=== PATIENT | female | born 1945 ===

== ENCOUNTER 2018-01-10 11:36 | Inpatient (IN) | payer OTHER ==
--- NOTE | 2018-01-10 14:02 | RAD ---
HISTORY: Chest pressure COMPARISON: No prior. FINDINGS: LUNGS: There are low lung volumes. There is bibasilar atelectasis. No focal consolidation. PLEURA: No significant pleural effusion identified, no pneumothorax apparent. CARDIOVASCULAR: The heart is normal in size. OSSEOUS STRUCTURES: No significant abnormalities. VISUALIZED UPPER ABDOMEN: Normal. OTHER FINDINGS: None. IMPRESSION: No active pulmonary disease.
[2018-01-10 14:17] LABS: SQUAMOUS EPITHIAL 2 /hpf (0-5); URINE BACTERIA OCC (<OCC); URINE BILIRUBIN NEGATIVE (NEGATIVE); URINE BLOOD NEGATIVE (NEGATIVE); URINE CLARITY SLIGHTY-CLOUDY (Clear); URINE COLOR YELLOW (YELLOW); URINE GLUCOSE (UA) NEG (Normal); URINE LEUKOCYTE ESTERASE LARGE Leu/uL (Negative); URINE PROTEIN NEGATIVE (NEGATIVE); URINE UROBILINOGEN 0.2-1.0 mg/dL (0.2-1.0)
[2018-01-10 14:18] LABS: BASO # 0.1 K/uL (0.0-0.2); BASO % 0.6 % (0.0-2.0); EOS # 0.1 K/uL (0.0-0.7); EOS % 0.6 % (0.0-4.0); HEMOGLOBIN 13.2 g/dL (12.0-16.0); LYMPH # 1.9 K/uL (1.0-4.3); MEAN CELL VOLUME 89.5 fl (81.0-99.0); MEAN CORPUSCULAR HEMOGLOBIN 30.8 pg (27.0-31.0); MEAN CORPUSCULAR HGB CONC 34.4 g/dL (33.0-37.0); MEAN PLATELET VOLUME 8.3 fl (7.2-11.7); MONO # 0.5 K/uL (0.0-0.8); MONO % 6.6 % (0.0-10.0); NEUT # 5.5 K/uL (1.8-7.0); NEUT % 68.2 % (50.0-75.0); NRBC % 0.1 % (0.0-0.0); RBC 4.28 Mil/uL (3.80-5.20); RED CELL DISTRIBUTION WIDTH 12.9 % (11.5-14.5); WHITE BLOOD COUNT 8.1 K/uL (4.8-10.8)
[2018-01-10 14:27] LABS: ALB/GLOB RATIO 1.1 (1.0-2.1); ALBUMIN 3.6 g/dL (3.5-5.0); ALT/SGPT 42 U/L (9-52); AST/SGOT 27 U/L (14-36); BLOOD UREA NITROGEN 20 mg/dl (7-17); CALCIUM 9.5 mg/dL (8.4-10.2); GFR AFRICAN-AMERICAN > 60; GFR NON-AFRICAN AMERICAN > 60
--- NOTE | 2018-01-10 14:38 | ED PDOC ---
HPI: Psych/Substance Abuse Time Seen by Provider: 01/10/18 11:44 Chief Complaint (Nursing): Psychiatric Evaluation Chief Complaint (Provider): Acting bizarre in apartment buiding History Per: Patient, EMS History/Exam Limitations: no limitations Additional Complaint(s): Pt denies complaint and states she does not know why she is in ER. Denies chest pain, fever/chills, N/V/D, dysuria. According to EMS [facility] Police were called because pt was acting "bizarre" in her apartment building. EMS states she was saying people were out to get her in the ambulance. Past Medical History Reviewed: Historical Data, Nursing Documentation, Vital Signs Vital Signs: Last Vital Signs Temp 98.0 F 01/10/18 12:26 Pulse 75 01/10/18 12:26 Resp 19 01/10/18 12:26 BP 128/68 01/10/18 12:26 Pulse Ox 98 01/10/18 12:26 - Medical History Other PMH: Pt states she takes medications at home but not sure for what - Surgical History Surgical History: No Surg Hx - Family History Family History: States: Other - Allergies Allergies/Adverse Reactions: Allergies Allergy/AdvReac Type Severity Reaction Status Date / Time No Known Allergies Allergy Verified 01/10/18 12:29 Review of Systems ROS Statement: Except As Marked, All Systems Reviewed And Found Negative Constitutional: Negative for: Fever, Chills Cardiovascular: Negative for: Chest Pain Respiratory: Negative for: Shortness of Breath Gastrointestinal: Negative for: Nausea, Vomiting, Abdominal Pain, Diarrhea Genitourinary Female: Negative for: Dysuria Physical Exam - Reviewed Nursing Documentation Reviewed: Yes Vital Signs Reviewed: Yes - Physical Exam Appears: Positive for: Well, Non-toxic, No Acute Distress Head Exam: Positive for: ATRAUMATIC, NORMAL INSPECTION, NORMOCEPHALIC Skin: Positive for: Normal Color, Warm, DRY Eye Exam: Positive for: Normal appearance ENT: Positive for: Normal ENT Inspection Neck: Positive for: Normal, Painless ROM Cardiovascular/Chest: Positive for: Regular Rate, Rhythm Respiratory: Positive for: CNT, Normal Breath Sounds Gastrointestinal/Abdominal: Positive for: Normal Exam, Bowel Sounds, Soft. Negative for: Tenderness Back: Positive for: Normal Inspection Extremity: Positive for: Normal ROM Neurologic/Psych: Positive for: Alert. Negative for: Oriented (Oriented only to person) - Laboratory Results Result Diagrams: 01/10/18 14:00 01/10/18 14:00 - ECG O2 Sat by Pulse Oximetry: 98 Pulse Ox Interpretation: Normal Medical Decision Making Medical Decision Makin - Pt attempting to leave ER. lunchroom worker states she has not spoke with psychiatrist yet. Dr. Humphrey aware and with myself and patient. Haldol 2.5 mg ordered IM. Pt endorsed to ERNESTINE Serrano pending [facility] [place] and head [place]. Disposition - Clinical Impression Clinical Impression: Encounter for psychiatric assessment, UTI (urinary tract infection) - Patient ED Disposition Is Patient to be Admitted: Transfer of Care - Disposition Disposition: Transfer of Care Disposition Time: 20:10 Condition: STABLE Forms: [facility] (Armenian)
[2018-01-10 14:39] LABS: BARBITURATES, UR NEGATIVE (NEGATIVE); BENZODIAZEPINES, UR NEGATIVE (NEGATIVE); OPIATES, UR NEGATIVE (NEGATIVE); PHENCYCLIDINE, UR NEGATIVE (NEGATIVE)
[2018-01-10] MEDS ORDERED: Potassium Chloride 20 mEq ER Tab PO STA (15:38)
[2018-01-10] MEDS ORDERED: Potassium Chloride 20 mEq ER Tab PO ONE (16:03)
--- NOTE | 2018-01-10 20:13 | CARD ---
APPROVED REPORT EKG Measurement Heart [id number] <Conclusion> Sinus bradycardia Otherwise normal ECG
--- NOTE | 2018-01-10 22:13 | CT ---
EXAM: CT Head Without Intravenous Contrast CLINICAL HISTORY: 72 years old, female; Signs and symptoms; Altered mental status/memory loss and other: Psych eval; Additional info: AMS TECHNIQUE: Axial computed tomography images of the head/brain without intravenous contrast. All CT scans at this facility use one or more dose reduction techniques, viz.: automated exposure control; ma/kV adjustment per patient size (including targeted exams where dose is matched to indication; i.e. head); or iterative reconstruction technique. Coronal and sagittal reformatted images were created and reviewed. COMPARISON: No relevant prior studies available. FINDINGS: Brain: Moderate atrophy. No intracranial hemorrhage. No mass. Minimal decreased attenuation within periventricular white matter. No definite edema. Ventricles: No hydrocephalus. Bones/joints: No acute fracture. Soft tissues: Unremarkable. Sinuses: No acute sinusitis. Mastoid air cells: No mastoid effusion. Orbits: Unremarkable as visualized. IMPRESSION: 1. Nonspecific white matter changes. Acute infarction may be CT occult within first 24 hours. If a focal deficit persists, consider followup CT or MRI for further evaluation. 2. Incidental/non-acute findings are described above.
--- NOTE | 2018-01-10 22:46 | ED PDOC ---
- Laboratory Results Result Diagrams: 01/10/18 14:00 01/10/18 14:00 - ECG O2 Sat by Pulse Oximetry: 98 - Progress ED Course And Treament: Case endorsed to bond underwriter from Torri SINHA pending [facility] eval EXAM: CT Head Without Intravenous Contrast CLINICAL HISTORY: 72 years old, female; Signs and symptoms; Altered mental status/memory loss and other: Psych eval; Additional info: AMS TECHNIQUE: Axial computed tomography images of the head/brain without intravenous contrast. All CT scans at this facility use one or more dose reduction techniques, viz.: automated exposure control; ma/kV adjustment per patient size (including targeted exams where dose is matched to indication; i.e. head); or iterative reconstruction technique. Coronal and sagittal reformatted images were created and reviewed. COMPARISON: No relevant prior studies available. FINDINGS: Brain: Moderate atrophy. No intracranial hemorrhage. No mass. Minimal decreased attenuation within periventricular white matter. No definite edema. Ventricles: No hydrocephalus. Bones/joints: No acute fracture. Soft tissues: Unremarkable. Sinuses: No acute sinusitis. Mastoid air cells: No mastoid effusion. Orbits: Unremarkable as visualized. IMPRESSION: 1. Nonspecific white matter changes. Acute infarction may be CT occult within first 24 hours. If a focal deficit persists, consider followup CT or MRI for further evaluation. 2. Incidental/non-acute findings are described above. Patient evaluated by [facility], does not meet criteria for commitment at this time. Crisis unable to get in touch with son. Patient unable to provide address Case discussed with ED attending Dr. Beckwith, will admit for AMS with UTI Case discussed with Dr. Cueto, medical service on-call, recommends IV rocephin for UTI. Disposition - Clinical Impression Clinical Impression: UTI (urinary tract infection), Altered mental status - POA Present On Arrival: None - Disposition Disposition: Hospitalized as Observation Patient Disposition Time: 22:59 Condition: FAIR Forms: [facility] (Czech)
[2018-01-10] MEDS ORDERED: cefTRIAXone (Rocephin) 1 gm Inj ONE (23:46)
--- NOTE | 2018-01-11 07:58 | CP.PCM.CON ---
History of Present Illness - History of Present Illness History of Present Illness: Psychiatry consult CC: AMS HPI: 72 yo female BIB EMS due to bizarre behavior and paranoia that someone broke into her apartment. Patient is only oriented to self, thinks she is currently in her own home and does not know that date of president. She can not give any relevant history. She denies depression/anxiety/AH/VH/acute paranoia to travel writer. Patient was [place] [facility] [place] not accepted for involuntary commitment. Patient does not have capacity to sign into a voluntary psychiatric unit or make medical decisions at this time. MSE: A + O x 1, calm, cooperative, good eye contact, mood "good", affect- broad/ full range; speech- non-linear at times, circumstantial/tangential; denies acute AH/VH/paranoia; poor I/J Impression: 72 yo female presents w/ acute AMS possibility secondary to acute UTI. Patient also likely has chronic neurocognitive impairment. Recommendations: -Acute psychiatric admission not indicated at this time -AMS/ presenting paranoia likely due to acute medical issues; if they do not resolve w/ medical treatment can consider starting Risperdal 0.5 mg PO Daily@ 1700 or HS -Obtain collateral history from family to determine safe disposition plan -Would recommend to avoid treatment w/ benzodiazepines as they can worsen mental status; if needed would recommend to not give more than Ativan 0.5 mg PO or IM Q6 hr PRN agitation Past Patient History - Infectious Disease Hx of Infectious Diseases: None - Past Social History Smoking Status: unknown - CARDIAC Hx Cardiac Disorders: Yes Hx Hypertension: No Other/Comment: unknown; patient poor historian - PULMONARY Hx Tuberculosis: No Other/Comment: unknown; patient poor historian - NEUROLOGICAL HX Cerebrovascular Accident: No Hx Seizures: No Other/Comment: unknown; patient poor historian - HEENT Other/Comment: unknown; patient poor historian - RENAL Other/Comment: unknown; patient poor historian - ENDOCRINE/METABOLIC Other/Comment: unknown; patient poor historian - HEMATOLOGICAL/ONCOLOGICAL Hx Cancer: No Hx Human Immunodeficiency Virus (HIV): No Other/Comment: unknown; patient poor historian - INTEGUMENTARY Other/Comment: unknown; patient poor historian - MUSCULOSKELETAL/RHEUMATOLOGICAL Hx Falls: (unknown) Other/Comment: unknown; patient poor historian - GASTROINTESTINAL Other/Comment: unknown; patient poor historian - GENITOURINARY/GYNECOLOGICAL Hx Sexually Transmitted Disorders: No Other/Comment: unknown; patient poor historian - PSYCHIATRIC Hx Substance Use: No Other/Comment: unknown; patient poor historian - SURGICAL HISTORY Other/Comment: unknown; patient poor historian - ANESTHESIA Hx Anesthesia: No (unknown) Meds Allergies/Adverse Reactions: Allergies Allergy/AdvReac Type Severity Reaction Status Date / Time No Known Allergies Allergy Verified 01/10/18 12:29 - Medications Medications: Current Medications Lorazepam (Ativan) 2 mg PO Q6 PRN PRN Reason: Agitation Results - Vital Signs Recent Vital Signs: Last Vital Signs Temp 98.6 F 01/11/18 07:51 Pulse 61 01/11/18 07:51 Resp 20 01/11/18 07:51 BP 130/73 01/11/18 07:51 Pulse Ox 96 01/11/18 07:51 - Labs Result Diagrams: 01/10/18 14:00 01/10/18 14:00 Labs: Laboratory Results - last 24 hr 01/10/18 01/10/18 01/10/18 14:00 14:00 14:00 WBC 8.1 RBC 4.28 Hgb 13.2 Hct 38.3 MCV 89.5 MCH 30.8 MCHC 34.4 RDW 12.9 Plt Count 244 MPV 8.3 Neut % (Auto) 68.2 Lymph % (Auto) 24.0 Jefferson % (Auto) 6.6 Eos % (Auto) 0.6 Baso % (Auto) 0.6 Neut # (Auto) 5.5 Lymph # (Auto) 1.9 Jefferson # (Auto) 0.5 Eos # (Auto) 0.1 Baso # (Auto) 0.1 Sodium 138 Potassium 3.2 L Chloride 98 Carbon Dioxide 28 Anion Gap 15 BUN 20 H Creatinine 0.8 Est GFR ( Amer) > 60 Est GFR (Non-Af Amer) > 60 Random Glucose 103 Calcium 9.5 Total Bilirubin 0.9 AST 27 ALT 42 Alkaline Phosphatase 74 Troponin I < 0.0120 Total Protein 6.8 Albumin 3.6 Globulin 3.2 Albumin/Globulin Ratio 1.1 Urine Color Urine Clarity Urine pH Ur Specific Caruthers Urine Protein Urine Glucose (UA) Urine Ketones Urine Blood Urine Nitrate Urine Bilirubin Urine Urobilinogen Ur Leukocyte Esterase Urine RBC (Auto) Urine Microscopic WBC Ur Squamous Epith Cells Urine Bacteria Urine Opiates Screen Negative Urine Methadone Screen Negative Ur Barbiturates Screen Negative Ur Phencyclidine Scrn Negative Ur Amphetamines Screen Negative U Benzodiazepines Scrn Negative U Oth Cocaine Metabols Negative U Cannabinoids Screen Negative Alcohol, Quantitative < 10 01/10/18 14:00 WBC RBC Hgb Hct MCV MCH MCHC RDW Plt Count MPV Neut % (Auto) Lymph % (Auto) Jefferson % (Auto) Eos % (Auto) Baso % (Auto) Neut # (Auto) Lymph # (Auto) Jefferson # (Auto) Eos # (Auto) Baso # (Auto) Sodium Potassium Chloride Carbon Dioxide Anion Gap BUN Creatinine Est GFR ( Amer) Est GFR (Non-Af Amer) Random Glucose Calcium Total Bilirubin AST ALT Alkaline Phosphatase Troponin I Total Protein Albumin Globulin Albumin/Globulin Ratio Urine Color Yellow Urine Clarity Slighty-cloudy Urine pH 6.0 Ur Specific Caruthers 1.013 Urine Protein Negative Urine Glucose (UA) Neg Urine Ketones Negative Urine Blood Negative Urine Nitrate Negative Urine Bilirubin Negative Urine Urobilinogen 0.2-1.0 Ur Leukocyte Esterase Large Urine RBC (Auto) 3 Urine Microscopic WBC 6 H Ur Squamous Epith Cells 2 Urine Bacteria Occ H Urine Opiates Screen Urine Methadone Screen Ur Barbiturates Screen Ur Phencyclidine Scrn Ur Amphetamines Screen U Benzodiazepines Scrn U Oth Cocaine Metabols U Cannabinoids Screen Alcohol, Quantitative
[2018-01-11 10:18] LABS: BLOOD UREA NITROGEN 18 mg/dl (7-17); CALCIUM 9.7 mg/dL (8.4-10.2); GFR AFRICAN-AMERICAN > 60; GFR NON-AFRICAN AMERICAN > 60
--- NOTE | 2018-01-12 00:45 | CP.PCM.CON ---
History of Present Illness - History of Present Illness History of Present Illness: 72 yr old woman, right handed who was brought to [facility] as she had a spell when she felt that someone was trying to break into her apartment, and had "bizarre behaviour". On my exam, MIss krishnamurthy appeared jolly and was walking in the hallway, but it was clear that she great difficulty following commands and had right left confusion, did not know the date, where she was and could not name some objects. There was no ataxia, no tremor that i noted. She was not able to tell me if she had a history of seizures or stroke, but from the record this does not appear to be part of her history. PMH/PSH: not known. FH/SH: lives alone ALl: nkda On exam: Normal neuro exam except for the following: difficulty naming, repeating. Poor attention. right left confusion. + constructional apraxia. She cannot copy a clock or intersecting pentagons. Cannot do calculations. Gait is normal. Reflexes are symmetric. Past Patient History - Infectious Disease Hx of Infectious Diseases: None - Past Social History Smoking Status: unknown - CARDIAC Hx Cardiac Disorders: Yes Hx Hypertension: No Other/Comment: unknown; patient poor historian - PULMONARY Hx Tuberculosis: No Other/Comment: unknown; patient poor historian - NEUROLOGICAL HX Cerebrovascular Accident: No Hx Seizures: No Other/Comment: unknown; patient poor historian - HEENT Other/Comment: unknown; patient poor historian - RENAL Other/Comment: unknown; patient poor historian - ENDOCRINE/METABOLIC Other/Comment: unknown; patient poor historian - HEMATOLOGICAL/ONCOLOGICAL Hx Cancer: No Hx Human Immunodeficiency Virus (HIV): No Other/Comment: unknown; patient poor historian - INTEGUMENTARY Other/Comment: unknown; patient poor historian - MUSCULOSKELETAL/RHEUMATOLOGICAL Hx Falls: (unknown) Other/Comment: unknown; patient poor historian - GASTROINTESTINAL Other/Comment: unknown; patient poor historian - GENITOURINARY/GYNECOLOGICAL Hx Sexually Transmitted Disorders: No Other/Comment: unknown; patient poor historian - PSYCHIATRIC Hx Substance Use: No Other/Comment: unknown; patient poor historian - SURGICAL HISTORY Other/Comment: unknown; patient poor historian - ANESTHESIA Hx Anesthesia: No (unknown) Meds Allergies/Adverse Reactions: Allergies Allergy/AdvReac Type Severity Reaction Status Date / Time No Known Allergies Allergy Verified 01/10/18 12:29 - Medications Medications: Current Medications Ceftriaxone Sodium 1 gm/ (Sodium Chloride) 100 mls @ 100 mls/hr IVPB DAILY SYD PRN Reason: Protocol Last Admin: 01/11/18 09:59 Dose: 100 mls/hr Lorazepam (Ativan) 2 mg PO Q6 PRN PRN Reason: Agitation Last Admin: 01/11/18 11:24 Dose: 2 mg Results - Vital Signs Recent Vital Signs: Last Vital Signs Temp 98.4 F 01/11/18 23:47 Pulse 63 01/11/18 23:47 Resp 18 01/11/18 23:47 BP 97/60 L 01/11/18 23:47 Pulse Ox 98 01/11/18 23:47 - Labs Result Diagrams: 01/10/18 14:00 01/11/18 09:55 Labs: Laboratory Results - last 24 hr 01/11/18 09:55 Sodium 140 Potassium 4.0 Chloride 98 Carbon Dioxide 32 H Anion Gap 14 BUN 18 H Creatinine 0.9 Est GFR ( Amer) > 60 Est GFR (Non-Af Amer) > 60 Random Glucose 161 H Calcium 9.7 - Imaging and Cardiology CT scan - head Status: Image reviewed by me, Report reviewed by me Additional comment: Ct head : shows moderate atrophy., but no strokes or hemorrhage. Assessment & Plan - Assessment and Plan (Free Text) Assessment: 72 yr old woman who has a UTI, and underlying dementia, which is worsened by her infection, causing a metabolic encephalopathy. She may benefit from dementia workup and starting medication. IN addition, as her UTI clears, her mental status may improve. IT is also concerning that she lives alone. Plan: 1. start aricept 2. UTI treatment as per medical team. Thank you. our team will follow DR. Desai
--- NOTE | 2018-01-12 08:01 | HP ---
HISTORY OF PRESENT ILLNESS: Ms. Ga is a 72-year-old female who was brought to the emergency room by police because she was acting bizarre in her apartment complex, no other history is available. One has not been able to reach family or next of kin. She is unable to give any history, presently is calm, but had been combative in the emergency room. No other medical history is available in the chart. PHYSICAL EXAMINATION: GENERAL: The patient is awake and alert and cooperative, but confused. VITAL SIGNS: Remarkable for blood pressure of 130/73, pulse of 61, respiratory rate of 20. She is afebrile. O2 sat is 96% on room air. SKIN: Shows fair turgor. HEENT: Pupils are equal and reactive to light and accommodation. Mouth shows fair hygiene. NECK: JVP flat. LUNGS: Clear. HEART: Regular. No murmurs or gallop. ABDOMEN: Soft and nontender, no organomegaly. EXTREMITIES: Show no edema or cyanosis. CENTRAL NERVOUS SYSTEM: Remarkable for severe confusion, otherwise, no other gross deficits. LABORATORY DATA: WBC 8.1, hemoglobin 13.2, and platelet count 244,000. Sodium 138, potassium 3.2, BUN of 20, and creatinine 0.8. Urinalysis shows occasional bacteria. CAT scan of the brain done in the emergency room was remarkable for nonspecific white matter changes. EKG, sinus bradycardia, otherwise, unremarkable. Chest x-ray, no active disease. IMPRESSION: Clinical pictures compatible with dementia, questionable etiology; bradycardia, probably secondary to medications but one has to rule out hypothyroidism. The patient was already seen by psychiatry and crisis intervention and is not deemed to be an appropriate patient for psychiatric [place]. PLAN: Plan is to continue treatment with IV antibiotics for urinary tract infection. financial services consultant to see the patient regarding discharge plan and disposition. Joshua Cueto MD
--- NOTE | 2018-01-12 09:33 | CP.PCM.PN ---
Subjective - Date & Time of Evaluation Date of Evaluation: 01/12/18 Time of Evaluation: 09:34 - Subjective Subjective: EPISODES OF AGITATION UNABLE TO REACH SON --HE REFUSES TO ANSWER PHONE OR CALL BACK Objective - Vital Signs/Intake and Output Vital Signs (last 24 hours): Temp Pulse Resp BP Pulse Ox 98.3 F 61 20 117/77 97 01/12/18 07:54 01/12/18 07:54 01/12/18 07:54 01/12/18 07:54 01/12/18 07:54 - Medications Medications: Current Medications Donepezil HCl (Aricept) 5 mg PO HS SYD Ceftriaxone Sodium 1 gm/ (Sodium Chloride) 100 mls @ 100 mls/hr IVPB DAILY SYD PRN Reason: Protocol Last Admin: 01/12/18 08:24 Dose: 100 mls/hr Lorazepam (Ativan) 2 mg PO Q6 PRN PRN Reason: Agitation Last Admin: 01/12/18 08:23 Dose: 2 mg - Labs Labs: 01/10/18 14:00 01/11/18 09:55 - Constitutional Appears: No Acute Distress - Head Exam Head Exam: ATRAUMATIC, NORMAL INSPECTION, NORMOCEPHALIC - Eye Exam Eye Exam: EOMI, Normal appearance, PERRL Pupil Exam: NORMAL ACCOMODATION, PERRL - ENT Exam ENT Exam: Mucous Membranes Moist, Normal Exam - Neck Exam Neck Exam: Full ROM, Normal Inspection. absent: Lymphadenopathy - Respiratory Exam Respiratory Exam: Clear to Ausculation Bilateral, NORMAL BREATHING PATTERN - Cardiovascular Exam Cardiovascular Exam: REGULAR RHYTHM, +S1, +S2. absent: Murmur - GI/Abdominal Exam GI & Abdominal Exam: Soft, Normal Bowel Sounds. absent: Tenderness - Rectal Exam Rectal Exam: NORMAL INSPECTION - Extremities Exam Extremities Exam: Full ROM, Normal Capillary Refill, Normal Inspection. absent : Joint Swelling, Pedal Edema - Back Exam Back Exam: NORMAL INSPECTION - Neurological Exam Neurological Exam: Alert, Awake, CN II-XII Intact, Normal Gait - Psychiatric Exam Psychiatric exam: Agitated - Skin Skin Exam: Dry, Intact, Normal Color, Warm Assessment and Plan - Assessment and Plan (Free Text) Assessment: DEMENTIA UTI METABOLIC ENCEPHALOPATHY HYPOKALEMIA-RESOLVED Plan: CONTINUE IV ANTIBIOTICS AND ATIVAN,PRN LEAD MATERIAL HANDLER TO ATTEMPT TO REACH SON FOR DISPOSITION
--- NOTE | 2018-01-13 09:17 | CP.PCM.PN ---
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 WILL CONTINUE IV ANTIBIOTICS FOR UTI Objective - Vital Signs/Intake and Output Vital Signs (last 24 hours): Temp Pulse Resp BP Pulse Ox 98.2 F 72 20 114/71 97 01/13/18 08:04 01/13/18 08:04 01/13/18 08:04 01/13/18 08:04 01/13/18 08:04 - Medications Medications: Current Medications Donepezil HCl (Aricept) 5 mg PO HS SYD Last Admin: 01/12/18 21:34 Dose: 5 mg Ceftriaxone Sodium 1 gm/ (Sodium Chloride) 100 mls @ 100 mls/hr IVPB DAILY SYD PRN Reason: Protocol Last Admin: 01/12/18 08:24 Dose: 100 mls/hr Lorazepam (Ativan) 2 mg PO Q6 PRN PRN Reason: Agitation Last Admin: 01/12/18 17:13 Dose: 2 mg - Labs Labs: 01/10/18 14:00 01/11/18 09:55
[2018-01-14 08:06] VITALS: RESP 20
[2018-01-14 15:49] VITALS: BP 122/84; PULSE 75; TEMP 98; O2SAT 99
--- NOTE | 2018-01-14 15:52 | CP.PCM.DIS ---
Provider - Provider Date of Admission: 01/10/18 23:58 Attending physician: Joshua Cueto MD Time Spent in preparation of Discharge (in minutes): 30 Diagnosis - Discharge Diagnosis (1) Altered mental status Status: Acute (2) UTI (urinary tract infection) Status: Acute Hospital Course - Lab Results Lab Results: Micro Results 01/10/18 23:00 Urine,Clean Catch Urine Culture - Final Enterococcus Faecalis Most Recent Lab Values WBC 8.1 K/uL (4.8-10.8) 01/10/18 14:00 RBC 4.28 Mil/uL (3.80-5.20) 01/10/18 14:00 Hgb 13.2 g/dL (12.0-16.0) 01/10/18 14:00 Hct 38.3 % (34.0-47.0) 01/10/18 14:00 MCV 89.5 fl (81.0-99.0) 01/10/18 14:00 MCH 30.8 pg (27.0-31.0) 01/10/18 14:00 MCHC 34.4 g/dL (33.0-37.0) 01/10/18 14:00 RDW 12.9 % (11.5-14.5) 01/10/18 14:00 Plt Count 244 K/uL (130-400) 01/10/18 14:00 MPV 8.3 fl (7.2-11.7) 01/10/18 14:00 Neut % (Auto) 68.2 % (50.0-75.0) 01/10/18 14:00 Lymph % (Auto) 24.0 % (20.0-40.0) 01/10/18 14:00 [place] % (Auto) 6.6 % (0.0-10.0) 01/10/18 14:00 Eos % (Auto) 0.6 % (0.0-4.0) 01/10/18 14:00 Baso % (Auto) 0.6 % (0.0-2.0) 01/10/18 14:00 Neut # (Auto) 5.5 K/uL (1.8-7.0) 01/10/18 14:00 Lymph # (Auto) 1.9 K/uL (1.0-4.3) 01/10/18 14:00 [place] # (Auto) 0.5 K/uL (0.0-0.8) 01/10/18 14:00 Eos # (Auto) 0.1 K/uL (0.0-0.7) 01/10/18 14:00 Baso # (Auto) 0.1 K/uL (0.0-0.2) 01/10/18 14:00 Sodium 140 mmol/l (132-148) 01/11/18 09:55 Potassium 4.0 MMOL/L (3.6-5.0) 01/11/18 09:55 Chloride 98 mmol/L (98-107) 01/11/18 09:55 Carbon Dioxide 32 mmol/L (22-30) H 01/11/18 09:55 Anion Gap 14 (10-20) 01/11/18 09:55 BUN 18 mg/dl (7-17) H 01/11/18 09:55 Creatinine 0.9 mg/dl (0.7-1.2) 01/11/18 09:55 Est GFR ( Amer) > 60 01/11/18 09:55 Est GFR (Non-Af Amer) > 60 01/11/18 09:55 Random Glucose 161 mg/dL (65-105) H 01/11/18 09:55 Calcium 9.7 mg/dL (8.4-10.2) 01/11/18 09:55 Total Bilirubin 0.9 mg/dl (0.2-1.3) 01/10/18 14:00 AST 27 U/L (14-36) 01/10/18 14:00 ALT 42 U/L (9-52) 01/10/18 14:00 Alkaline Phosphatase 74 U/L (38-126) 01/10/18 14:00 Troponin I < 0.0120 ng/mL (0.00-0.120) 01/10/18 14:00 Total Protein 6.8 G/DL (6.3-8.2) 01/10/18 14:00 Albumin 3.6 g/dL (3.5-5.0) 01/10/18 14:00 Globulin 3.2 gm/dL (2.2-3.9) 01/10/18 14:00 Albumin/Globulin Ratio 1.1 (1.0-2.1) 01/10/18 14:00 Urine Color Yellow (YELLOW) 01/10/18 14:00 Urine Clarity Slighty-cloudy (Clear) 01/10/18 14:00 Urine pH 6.0 (5.0-8.0) 01/10/18 14:00 Ur Specific [place] 1.013 (1.003-1.030) 01/10/18 14:00 Urine Protein Negative mg/dL (NEGATIVE) 01/10/18 14:00 Urine Glucose (UA) Neg mg/dL (Normal) 01/10/18 14:00 Urine Ketones Negative mg/dL (NEGATIVE) 01/10/18 14:00 Urine Blood Negative (NEGATIVE) 01/10/18 14:00 Urine Nitrate Negative (NEGATIVE) 01/10/18 14:00 Urine Bilirubin Negative (NEGATIVE) 01/10/18 14:00 Urine Urobilinogen 0.2-1.0 mg/dL (0.2-1.0) 01/10/18 14:00 Ur Leukocyte Esterase Large Nori/uL (Negative) 01/10/18 14:00 Urine RBC (Auto) 3 /hpf (0-3) 01/10/18 14:00 Urine Microscopic WBC 6 /hpf (0-5) H 01/10/18 14:00 Ur Squamous Epith Cells 2 /hpf (0-5) 01/10/18 14:00 Urine Bacteria Occ (<OCC) H 01/10/18 14:00 Urine Opiates Screen Negative (NEGATIVE) 01/10/18 14:00 Urine Methadone Screen Negative (NEGATIVE) 01/10/18 14:00 Ur Barbiturates Screen Negative (NEGATIVE) 01/10/18 14:00 Ur Phencyclidine Scrn Negative (NEGATIVE) 01/10/18 14:00 Ur Amphetamines Screen Negative (NEGATIVE) 01/10/18 14:00 U Benzodiazepines Scrn Negative (NEGATIVE) 01/10/18 14:00 U Oth Cocaine Metabols Negative (NEGATIVE) 01/10/18 14:00 U Cannabinoids Screen Negative (NEGATIVE) 01/10/18 14:00 Alcohol, Quantitative < 10 mg/dl (0-10) 01/10/18 14:00 - Hospital Course Hospital Course: CONFUSED WITH EPISODES OF AGITATION Discharge Exam - Head Exam Head Exam: ATRAUMATIC, NORMAL INSPECTION, NORMOCEPHALIC - Eye Exam Eye Exam: EOMI, Normal appearance, PERRL Pupil Exam: NORMAL ACCOMODATION, PERRL - GI/Abdominal Exam GI & Abdominal Exam: Normal Bowel Sounds - Rectal Exam Rectal Exam: NORMAL INSPECTION - Neurological Exam Neurological exam: Alert, CN II-XII Intact, Normal Gait, Oriented x3, Reflexes Normal - Psychiatric Exam Psychiatric exam: Agitated - Skin Skin Exam: Dry, Intact, Normal Color, Warm Discharge Plan - Discharge Medications Prescriptions: cefTRIAXone 1 gm [Rocephin 1 gram IVPB] 1 gm IVPB DAILY #5 bag - Follow Up Plan Condition: FAIR Disposition: HOME/ ROUTINE Instructions: Altered Mental Status (DC), Urinary Tract Infection in Women (DC) Additional Instructions: pt. cleared for discharge to HOme today by cont. IV abx Rocephin 1gm daily x 5 more days Referrals: Destin La MD [Medical Doctor] - Dhiraj Desai MD [Medical Doctor] - Joshua Cueto MD [Staff Provider] -
== END 2018-01-14 17:44 | DRG 689 ==
LOC: H.ER 11:36 → H.ERHOLD 23:58 → H.MEDSURG1 01-11 01:10
PROVIDERS: ADMIT Internal Medicine Pulmonary Disease; ATTEND Internal Medicine Pulmonary Disease
DX: N39.0 Urinary tract infection, site not specified (principal); G93.41 Metabolic encephalopathy; B95.2 Enterococcus as the cause of diseases classified elsewhere; E87.6 Hypokalemia; F03.90 Unspecified dementia, unspecified severity, without behavioral disturbance, psychotic disturbance, mood disturbance, and anxiety

== ENCOUNTER 2018-01-19 13:25 | Emergency (ER) | payer OTHER ==
[2018-01-19 13:32] VITALS: RESP 18
--- NOTE | 2018-01-19 14:25 | ED PDOC ---
HPI: Psych/Substance Abuse Time Seen by Provider: 01/19/18 13:30 Chief Complaint (Nursing): Psychiatric Evaluation Chief Complaint (Provider): Psychiatric Evaluation History Per: Patient History/Exam Limitations: no limitations Current Symptoms Are (Timing): Better Additional History Per: EMS, Other (Snf) Additional Complaint(s): 72-year-old female, with history of dementia, sent from [facility] to ED via EMS for agitation. [facility] states patient was hitting staff. Prior to arrival, patient was given Ativan 0.5 mg. Patient is now completely calm and cooperative. No other medical complaints at this time. Pt states she is fine. PMD: Joshua Cueto Past Medical History Reviewed: Historical Data, Nursing Documentation, Vital Signs Vital Signs: Last Vital Signs Temp 99.0 F 01/19/18 13:29 Pulse 73 01/19/18 13:29 Resp 18 01/19/18 13:29 BP 136/88 01/19/18 13:29 Pulse Ox 99 01/19/18 13:29 - Medical History PMH: Denies: Diabetes, Hepatitis, HIV, HTN, Seizures, Sexually Transmitted Disease Other PMH: UTI - Surgical History Surgical History: No Surg Hx - Family History Family History: States: Unknown Family Hx - Social History Current smoker - smoking cessation education provided: No Alcohol: None Drugs: Denies - Home Medications Home Medications: Ambulatory Orders Medication Instructions Recorded Donepezil [Aricept] 5 mg PO HS #0 tab 01/14/18 Acetaminophen [Tylenol 325mg tab] 650 mg PO Q4 PRN 01/19/18 Acetaminophen [Tylenol 325mg tab] 650 mg PO Q4 PRN 01/19/18 Escitalopram Oxalate [Lexapro] 5 mg PO DAILY 01/19/18 LORazepam [Ativan] 1 mg PO Q6 PRN 01/19/18 Mag Hydrox/Aluminum Hyd/Simeth 30 ml PO Q4 PRN 01/19/18 [Maalox Advanced Suspension] Magnesium Hydroxide [Milk Of 30 ml PO DAILY PRN 01/19/18 Magnesia] - Allergies Allergies/Adverse Reactions: Allergies Allergy/AdvReac Type Severity Reaction Status Date / Time No Known Allergies Allergy Verified 01/10/18 12:29 Review of Systems ROS Statement: Except As Marked, All Systems Reviewed And Found Negative Physical Exam - Reviewed Nursing Documentation Reviewed: Yes Vital Signs Reviewed: Yes - Physical Exam Appears: Positive for: Well (Calm and cooperative) Head Exam: Positive for: ATRAUMATIC, NORMAL INSPECTION, NORMOCEPHALIC Skin: Positive for: Normal Color, Warm, Dry Eye Exam: Positive for: Normal appearance, EOMI, PERRL ENT: Positive for: Normal ENT Inspection Neck: Positive for: Normal Cardiovascular/Chest: Positive for: Regular Rate, Rhythm Respiratory: Positive for: Normal Breath Sounds. Negative for: Respiratory Distress Gastrointestinal/Abdominal: Positive for: Normal Exam Back: Positive for: Normal Inspection Extremity: Positive for: Normal ROM Neurologic/Psych: Positive for: Alert, Oriented (x 3) - Laboratory Results Result Diagrams: 01/19/18 14:40 01/19/18 14:40 - ECG O2 Sat by Pulse Oximetry: 99 (RA) Pulse Ox Interpretation: Normal Medical Decision Making Medical Decision Making: Time: 13:53 agitation, rule out electrolyte abnormality versus infection Plan: - EKG - Acetaminophen - Alcohol Serum - BMP - CMP - Drug Screen, Urine - Salicylate - CBC (with differentials) - Portable CXR - Urine Culture - Urinalysis Portable CXR Time: 14:54 FINDINGS: LUNGS: No active pulmonary disease. PLEURA: No significant pleural effusion identified, no pneumothorax apparent. CARDIOVASCULAR: Atherosclerotic aortic calcifications. Cardiomediastinal silhouette unchanged. OSSEOUS STRUCTURES: Unchanged. VISUALIZED UPPER ABDOMEN: Normal. OTHER FINDINGS: None. IMPRESSION: No active disease. Labs and urine reveal no significnat clinical abnormalities. Patient referred to crisis evaluation. Time 17:32 --Patient requires no further treatment in the ED at this time as per crisis ( dr chamberlain). She will be discharged to the longterm. Diagnosis is dementia as per Dr. Chamberlain. willl arrange for transfer back to longterm. Follow up with PMD in 1-2 days. Return to the ED if symptoms persist or worsen. Scribe Attestation: Documented by Celio Shepherd, acting as a scribe for Cortez Beckwith MD. Provider Scribe Attestation: All medical record entries made by the Scribe were at my direction and personally dictated by me. I have reviewed the chart and agree that the record accurately reflects my personal performance of the history, physical exam, medical decision making, and the department course for this patient. I have also personally directed, reviewed, and agree with the discharge instructions and disposition. Disposition - Clinical Impression Clinical Impression: Dementia - Patient ED Disposition Is Patient to be Admitted: No Counseled Patient/Family Regarding: Studies Performed, Diagnosis, Need For Followup - Disposition Disposition: Routine/Home Disposition Time: 16:00 Condition: IMPROVED Additional Instructions: follow up with your doctor in 2 days return to the ED with any worsening or concerning symptoms Instructions: Dementia (DC) Forms: [facility] (French) Print Language: KHMER
[2018-01-19 14:47] LABS: BASO % 0.6 % (0.0-2.0); EOS # 0.2 K/uL (0.0-0.7); EOS % 2.3 % (0.0-4.0); HEMOGLOBIN 12.7 g/dL (12.0-16.0); LYMPH # 1.9 K/uL (1.0-4.3); LYMPH % 26.4 % (20.0-40.0); MEAN CELL VOLUME 89.7 fl (81.0-99.0); MEAN CORPUSCULAR HEMOGLOBIN 30.9 pg (27.0-31.0); MEAN CORPUSCULAR HGB CONC 34.4 g/dL (33.0-37.0); MEAN PLATELET VOLUME 8.1 fl (7.2-11.7); MONO # 0.5 K/uL (0.0-0.8); MONO % 7.5 % (0.0-10.0); NEUT # 4.4 K/uL (1.8-7.0); NEUT % 63.2 % (50.0-75.0); NRBC % 0.1 % (0.0-0.0); RBC 4.12 Mil/uL (3.80-5.20); RED CELL DISTRIBUTION WIDTH 12.7 % (11.5-14.5)
--- NOTE | 2018-01-19 14:56 | RAD ---
HISTORY: agitation COMPARISON: Chest radiograph dated 01/10/2018. FINDINGS: LUNGS: No active pulmonary disease. PLEURA: No significant pleural effusion identified, no pneumothorax apparent. CARDIOVASCULAR: Atherosclerotic aortic calcifications. Cardiomediastinal silhouette unchanged. OSSEOUS STRUCTURES: Unchanged. VISUALIZED UPPER ABDOMEN: Normal. OTHER FINDINGS: None. IMPRESSION: No active disease.
[2018-01-19 14:59] LABS: ALB/GLOB RATIO 1.1 (1.0-2.1); ALBUMIN 3.6 g/dL (3.5-5.0); ALT/SGPT 44 U/L (9-52); AST/SGOT 29 U/L (14-36); BLOOD UREA NITROGEN 24 mg/dl (7-17); CALCIUM 9.3 mg/dL (8.4-10.2); GFR AFRICAN-AMERICAN > 60; GFR NON-AFRICAN AMERICAN > 60
[2018-01-19 16:32] LABS: SQUAMOUS EPITHIAL 6 /hpf (0-5); URINE BILIRUBIN NEGATIVE (NEGATIVE); URINE BLOOD NEGATIVE (NEGATIVE); URINE CLARITY SLIGHTY-CLOUDY (Clear); URINE COLOR YELLOW (YELLOW); URINE GLUCOSE (UA) NEG (Normal); URINE LEUKOCYTE ESTERASE SMALL Leu/uL (Negative); URINE PROTEIN 30 mg/dL (NEGATIVE); URINE UROBILINOGEN 0.2-1.0 mg/dL (0.2-1.0)
[2018-01-19 19:49] VITALS: BP 140/60; PULSE 79; TEMP 97.9
[2018-01-20 10:04] VITALS: O2SAT 99
--- NOTE | 2018-01-20 12:21 | CARD ---
APPROVED REPORT EKG Measurement Heart [id number] <Conclusion> Sinus bradycardia Otherwise normal ECG
== END 2018-01-19 21:15 ==
LOC: H.ER 13:25
DX: F03.90 Unspecified dementia, unspecified severity, without behavioral disturbance, psychotic disturbance, mood disturbance, and anxiety (principal)

== ENCOUNTER 2018-03-19 22:15 | Emergency (ER) | payer MEDICARE, OTHER ==
--- NOTE | 2018-03-19 23:26 | ED PDOC ---
HPI: Psych/Substance Abuse Time Seen by Provider: 03/19/18 22:38 Chief Complaint (Nursing): Psychiatric Evaluation Chief Complaint (Provider): Psychiatric Evaluation History Per: Patient, EMS History/Exam Limitations: no limitations Onset/Duration Of Symptoms: Hrs Associated Symptoms: denies: Suicidal Thoughts, Suicidal Plan Additional Complaint(s): Kriss Ga is a 72 year old female with a past medical history of dementia who was brought to the ED by EMS for psychiatric evaluation s/p displaying aggressive behavior at her [place] [facility]. Patient lives at [facility] and an ambulance was called after she became increasingly aggressive. Patient states that she has no medical complaints and wants to return to the [place] [facility]. She denies any homicidal or suicidal ideation. PMD: Dr. Cueto Past Medical History Reviewed: Historical Data, Nursing Documentation, Vital Signs Vital Signs: Last Vital Signs Temp 98.1 F 03/19/18 22:19 Pulse 73 03/19/18 22:19 Resp 20 03/19/18 22:19 BP 138/68 03/19/18 22:19 Pulse Ox 98 03/19/18 22:19 - Medical History PMH: Dementia Denies: Diabetes, Hepatitis, HIV, HTN, Seizures, Sexually Transmitted Disease - Surgical History Surgical History: No Surg Hx - Family History Family History: States: Unknown Family Hx - Social History Current smoker - smoking cessation education provided: No Alcohol: None Drugs: Denies - Home Medications Home Medications: Ambulatory Orders Medication Instructions Recorded Donepezil [Aricept] 5 mg PO HS #0 tab 01/14/18 Acetaminophen [Tylenol 325mg tab] 650 mg PO Q4 PRN 01/19/18 Acetaminophen [Tylenol 325mg tab] 650 mg PO Q4 PRN 01/19/18 Escitalopram Oxalate [Lexapro] 5 mg PO DAILY 01/19/18 LORazepam [Ativan] 1 mg PO Q6 PRN 01/19/18 Mag Hydrox/Aluminum Hyd/Simeth 30 ml PO Q4 PRN 01/19/18 [Maalox Advanced Suspension] Magnesium Hydroxide [Milk Of 30 ml PO DAILY PRN 01/19/18 Magnesia] - Allergies Allergies/Adverse Reactions: Allergies Allergy/AdvReac Type Severity Reaction Status Date / Time No Known Allergies Allergy Verified 01/10/18 12:29 Review of Systems ROS Statement: Except As Marked, All Systems Reviewed And Found Negative Psych: Negative for: Suicidal ideation, Other (homicidal ideation) Physical Exam - Reviewed Nursing Documentation Reviewed: Yes Vital Signs Reviewed: Yes - Physical Exam Appears: Positive for: Well, Non-toxic, No Acute Distress (calm) Head Exam: Positive for: ATRAUMATIC, NORMAL INSPECTION, NORMOCEPHALIC Skin: Positive for: Normal Color, Warm, DRY Eye Exam: Positive for: EOMI, Normal appearance, PERRL ENT: Positive for: Normal ENT Inspection Neck: Positive for: Normal, Painless ROM Cardiovascular/Chest: Positive for: Regular Rate, Rhythm. Negative for: Murmur Respiratory: Positive for: Normal Breath Sounds. Negative for: Respiratory Distress Gastrointestinal/Abdominal: Positive for: Normal Exam, Soft Back: Positive for: Normal Inspection Extremity: Positive for: Normal ROM Neurologic/Psych: Positive for: Alert, Oriented. Negative for: Motor/Sensory Deficits - ECG O2 Sat by Pulse Oximetry: 98 (RA) Pulse Ox Interpretation: Normal Medical Decision Making Medical Decision Making: Time: 22:58 Impression: Aggressive Behavior Differentials: Dementia Plan: --Crisis evaluation Scribe Attestation: Documented byVeronique acting as a scribe for Minoo Cunha MD. Provider Scribe Attestation: All medical record entries made by the Scribe were at my direction and personally dictated by me. I have reviewed the chart and agree that the record accurately reflects my personal performance of the history, physical exam, medical decision making, and the department course for this patient. I have also personally directed, reviewed, and agree with the discharge instructions and disposition. Disposition - Clinical Impression Clinical Impression: Dementia - Patient ED Disposition Is Patient to be Admitted: No Doctor Will See Patient In The: Office Counseled Patient/Family Regarding: Studies Performed, Diagnosis, Need For Followup - Disposition Disposition: Other Institution Disposition Time: 07:00 Condition: GOOD Instructions: Dementia (DC)
[2018-03-20 03:20] VITALS: RESP 16
[2018-03-20 08:13] VITALS: BP 125/80; PULSE 76; TEMP 97.9
[2018-03-20 10:32] VITALS: O2SAT 98
== END 2018-03-20 08:17 ==
LOC: H.ER 22:15
DX: F03.90 Unspecified dementia, unspecified severity, without behavioral disturbance, psychotic disturbance, mood disturbance, and anxiety (principal); Z00.8 Encounter for other general examination